=== PATIENT | female | born 1965 | race Caucasian/White ===

== ENCOUNTER → 2019-11-30 | Outpatient (CLI) | payer BC ==
--- NOTE | 2019-11-30 14:59 | Diagnostic Imaging Report ---
INDICATION: Worsening neck pain. TIME OF EXAM: 2:31 PM. TECHNIQUE: AP, lateral, and odontoid views of the cervical spine were obtained. FINDINGS: There is slight reversal of the normal cervical lordotic curvature. There is degenerative disc disease at the C5-C6 level with mild disc space narrowing and marginal spurring. The prevertebral tissues are normal. The odontoid appears intact. No fractures are seen. IMPRESSION: C5-C6 degenerative disc disease with slight reversal of the normal cervical curvature. No other significant abnormality is detected. Dictated by: Dictated on workstation # [id number]
== END ==
LOC: RAD 14:14
PROVIDERS: ATTEND Nurse Practitioner Family
DX: M50.122 Cervical disc disorder at C5-C6 level with radiculopathy (principal)
CPT/HCPCS: 72040

== ENCOUNTER 2021-03-22 08:46 | Outpatient (CLI) | payer BC, OTHER ==
[~2021-03-22] VITALS: Ht 157.5 cm; Wt 74.8 kg
[2021-03-22 09:07] VITALS: BP 143/82
[2021-03-22] MEDS ORDERED: ONDANSETRON 4 MG/2 ML (SDV) Z0FRAN IV PRN (09:15)
[2021-03-22] MEDS ORDERED: EPINEPHrine INJECTION 1 MG/ML AMP IM PRN (09:15)
[2021-03-22] MEDS ORDERED: CASIRIVIMAB/IMDEVIMAB 1,200 MG in NS (IVPB) 50 ML IV ONE (09:15)
[2021-03-22] MEDS ORDERED: ACETAMINOPHEN 500 MG TAB (TYLENOL) PO PRN (09:15)
[2021-03-22] MEDS ORDERED: diphenhydrAMINE 50 MG/ML INJ (BENADRYL) IV PRN (09:15)
[2021-03-22 10:18] VITALS: BP 112/67
== END 2021-03-22 10:19 ==
LOC: INFUSION 08:46
PROVIDERS: ATTEND Internal Medicine
DX: U07.1 COVID-19 (principal)

== ENCOUNTER → 2021-04-19 | Outpatient (CLI) | payer OTHER ==
--- NOTE | 2021-04-19 14:15 | Diagnostic Imaging Report ---
INDICATION: Routine screening. COMPARISON is made with prior mammograms 05/13/2013 and 05/23/2011. 2-D and 3-D bilateral screening mammography was performed with CAD. Both both breasts are heterogeneously dense, limiting sensitivity of mammography. There are bilateral breast implants. Implant contours appear smooth without evidence of extracapsular rupture. There are benign calcifications in the upper left breast, stable. No mass or malignant-appearing microcalcifications are seen. Axillae are unremarkable. IMPRESSION: BI-RADS Category 2 No mammographic features suspicious for malignancy are identified. ACR BI-RADS Category 2: Benign findings. Result letter will be mailed to the patient. Note: At least 10% of breast cancer is not imaged by mammography. Dictated by: Dictated on workstation # [id number]
== END ==
LOC: RAD 09:45
PROVIDERS: ATTEND Surgery
DX: Z12.31 Encounter for screening mammogram for malignant neoplasm of breast (principal)
CPT/HCPCS: 77063; 77067